=== PATIENT | female | born 1960 | race Caucasian/White ===

== ENCOUNTER → 2022-03-22 | Outpatient (CLI) | payer OTHER ==
[2022-03-22 14:09] LABS: INR 0.9 (<1.2); Partial Thromboplastin Time 30.8 sec (22.0-30.0); Prothrombin Time 9.8 sec (9.0-12.0)
[2022-03-22 18:31] LABS: HCT 40.3 % (37.2-46.3); HGB 13.3 g/dL (12.0-15.0); MCH 31.4 pg (27.0-32.0); MCV 95.3 fL (80.0-97.0); Mean Platelet Volume 9.3 fL (9.5-12.2); NRBC Per 100 WBC 0 /100 WBCS (0.0-0.0); Platelet Count 279 X 10*3/uL (140-440); RBC 4.23 X 10*6/uL (4.10-5.20); WBC 6.91 X 10*3/uL (4.50-10.00)
[2022-03-22 18:45] LABS: African American GFR (CKD) 109.6 (60.0-200.0); Albumin 4.7 g/dL (3.8-4.9); Albumin/Globulin Ratio 2.06 (1.60-3.17); Anion Gap 12.4 mmol/L (10.00-18.00); BUN/Creat Ratio 24.11 Ratio (12.00-20.00); Blood Urea Nitrogen 16.3 mg/dL (9.0-27.0); Calcium 10.1 mg/dL (8.7-10.3); Carbon Dioxide 25.9 mmol/L (20.0-27.5); Globulin 2.3 g/dL (1.6-3.3); Non-African American GFR(CKD) 94.6 (60.0-200.0); Potassium 4.4 mmol/L (3.5-5.5); Total Bilirubin 0.2 mg/dL (0.30-1.20)
== END | disposition home or self-care (01) ==
LOC: LABPAT 13:10
PROVIDERS: ATTEND Orthopaedic Surgery
DX: Z01.812 Encounter for preprocedural laboratory examination (principal); M16.11 Unilateral primary osteoarthritis, right hip
CPT/HCPCS: 36415; 80053; 85027; 85610; 85730; 87070; 93005

== ENCOUNTER → 2022-12-04 | Outpatient (CLI) | payer OTHER ==
[2022-12-04 15:04] LABS: INR 0.9 (<1.2); Prothrombin Time 9.5 sec (9.0-12.0)
[2022-12-04 17:46] LABS: Appearance,Urine Clear (Clear); Bilirubin,Urine Negative (Negative); Blood,Urine Trace (Negative); Color,Urine Yellow (Yellow); Ketones,Urine Negative (Negative); Nitrite,Urine Negative (Negative); PH, Urine 7.5 (5.0-8.0); Specific Gravity,Urine 1.009 (1.001-1.030); Urobilinogen,Urine 0.2 (0.2,1.0)
[2022-12-04 17:52] LABS: Bacteria,Urine None Seen /HPF (None Seen)
[2022-12-04 17:57] LABS: HCT 43.3 % (37.2-46.3); HGB 14.4 g/dL (12.0-15.0); MCH 31.4 pg (27.0-32.0); MCHC 33.3 g/dL (32.0-37.0); MCV 94.3 fL (80.0-97.0); Mean Platelet Volume 9.4 fL (9.5-12.2); NRBC Per 100 WBC 0 /100 WBCS (0.0-0.0); Platelet Count 263 X 10*3/uL (140-440); RBC 4.59 X 10*6/uL (4.10-5.20); RDW 12.7 % (11.5-14.5); WBC 6.22 X 10*3/uL (4.50-10.00)
[2022-12-04 19:01] LABS: ALT 26 U/L (8-44); AST 23 U/L (13-35); African American GFR (CKD) 110.5 (60.0-200.0); Albumin 4.7 g/dL (3.8-4.9); Alkaline Phosphatase 107 U/L (41-126); BUN/Creat Ratio 27.24 Ratio (12.00-20.00); Blood Urea Nitrogen 17.6 mg/dL (9.0-27.0); Calcium 10.3 mg/dL (8.7-10.3); Carbon Dioxide 26.5 mmol/L (20.0-27.5); Chloride 101 mmol/L (96-109); Globulin 2.4 g/dL (1.6-3.3); Glucose 94 mg/dL (70-110); Non-African American GFR(CKD) 95.3 (60.0-200.0); Potassium 4.7 mmol/L (3.5-5.5); Sodium 140 mmol/L (135-145); Total Bilirubin <0.15 mg/dL (0.30-1.20); Total Protein 7.1 g/dL (6.2-8.2)
== END ==
LOC: LABPAT 13:32
PROVIDERS: ATTEND Orthopaedic Surgery
DX: Z01.818 Encounter for other preprocedural examination (principal); M16.12 Unilateral primary osteoarthritis, left hip
CPT/HCPCS: 80053; 81001; 85027; 85610; 85730; 87070; 93005

== ENCOUNTER 2022-12-12 05:35 | Day surgery (SDC) | payer OTHER ==
[2022-12-06 16:02] VITALS: BMI 19.8
[~2022-12-12 05:35] MED LIST: ACETAMINOPHEN TAB 500 MG TAB PO PRN; GABAPENTIN 300 MG CAP PO PRN; MELOXICAM 7.5 MG TAB PO PRN; TRANEXAMIC ACID IN NACL,ISO-OS 1,000 MG in SALINE 1 100ML.BAG IVPB PRN
[2022-12-12] MEDS ORDERED: ONDANSETRON 4 MG/2 ML VIAL ONE (06:17)
[2022-12-12] MEDS ORDERED: DEXAMETHASONE SOD PHOSPHATE 4 MG/ML 1 ML VIAL IVP ONE (06:25)
[2022-12-12] MEDS ORDERED: ONDANSETRON 4 MG/2 ML VIAL IVP ONE (06:25)
[2022-12-12] MEDS ORDERED: MIDAZOLAM 2 MG/2 ML VIAL IVP ONE (06:36)
[2022-12-12] MEDS ORDERED: fentaNYL (PF) 50 MCG/1 ML VIAL IVP ONE (06:36)
[2022-12-12] MEDS ORDERED: GLYCOPYRROLATE 0.2 MG/ML 2 ML VIAL ONE (06:50)
[2022-12-12] MEDS ORDERED: SUCCINYLCHOLINE CHLORIDE 200 MG/10 ML VIAL IV ONE (06:50)
[2022-12-12] MEDS ORDERED: MIDAZOLAM 2 MG/2 ML VIAL ONE (06:50)
[2022-12-12] MEDS ORDERED: NEOSTIGMINE 1 MG/ML 10 ML VIAL ONE (06:50)
[2022-12-12] MEDS ORDERED: HYDROmorphone (PF) 1 MG/ML ONE (06:50)
[2022-12-12] MEDS ORDERED: PHENYLEPHRINE-0.9% NACL SYG 1,000 MCG/10 ML SYRINGE ONE (06:50)
[2022-12-12] MEDS ORDERED: PROPOFOL 10 MG/ML 20 ML VIAL IV ONE (06:50)
[2022-12-12] MEDS ORDERED: TRANEXAMIC ACID IN NACL,ISO-OS 1,000 MG/100 ML BAG ONE (06:50)
[2022-12-12] MEDS ORDERED: fentaNYL (PF) 50 MCG/ML 2 ML AMP ONE (06:50)
[2022-12-12] MEDS ORDERED: CISATRACURIUM 2 MG/ML 5 ML VIAL IV ONE (06:50)
[2022-12-12] MEDS ORDERED: LACTATED RINGERS 1,000 ML IV ONE ×2 (06:53→08:08)
[2022-12-12] MEDS ORDERED: ceFAZolin 1,000 MG in SODIUM CHLORIDE 0.9% 1,000 ML IRRIGATION ONE (06:57)
[2022-12-12] MEDS ORDERED: ROPIVACAINE 5 MG/ML 30 ML VIAL MISCELLANE ONE ×2 (07:25→07:58)
--- NOTE | 2022-12-12 08:05 | P.OP ---
Date of Procedure: 12/12/22 Preoperative Diagnosis: Severe osteoarthritis left hip Postoperative Diagnosis: Severe osteoarthritis left hip Procedure(s) Performed: Left total hip arthroplasty with a direct anterior approach Implants: [employer] Polarstem standard size 1 [employer] R3, 3 hole hemispherical acetabular shell, 48 mm [employer] Reflection 6.5 mm cancellus screw, 20 mm [employer] R3, XLPE 20 acetabular liner [employer] Oxinium femoral head 32 m, +0 All components were press-fit. The articulation is Oxinium on polyethylene. Anesthesia: GETA Surgeon: Rubio Cortez Support Group Manager #1: Bettye Ovalle Estimated Blood Loss (ml): 100 Pathology: other (Femoral head) Condition: stable Disposition: PACU Indications for Procedure: After failure of conservative treatment we discussed the surgical and nonsurgical treatment options at length. Patient wishes to proceed with a total hip arthroplasty with a direct anterior approach. Complications specific to this procedure were discussed at length, including but not limited to infection, leg length discrepancy, dislocation, nerve injury, and fracture. Covid-19 was also discussed at length with the patient, and they are aware of the current policies and procedures. The patient was given the option of delaying surgery, but they elect to proceed knowing these risks. Patient is aware of all these complications and informed consent was obtained Operative Findings: The operative findings are consistent with severe osteoarthritis of the left hip Description of Procedure: The patient was seen and evaluated in the preoperative area and the consent was reviewed. The operative site was marked with a skin marker. The patient verified the procedure and operative site. A ANTONIO block was placed by anesth esia in the preoperative area. The patient was then brought to the operating room and given preoperative antibiotics intravenously. 1 g of Tranexamic acid was also given intravenously. A general anesthetic was administered by the anesthesia department. The patient was then placed on the [place] table with the bony prominences well-padded. The hip area was then prepped with a ChloraPrep solution and draped in the usual sterile fashion. A universal timeout was then performed, which confirmed the patient's name, surgical site, ALLERGIES, and procedure being performed on the consent. Next the incision site was located at 1 cm distal and 4 cm lateral to the anterior superior iliac spine. The skin and subcutaneous tissues were sharply incised. Incision was carefully dissected down to the fascia overlying the tensor fascia margaux muscle. This fascia was then incised in line with the muscle fibers. Care was taken to stay laterally in order to avoid injuring the lateral femoral cutaneous nerve. Next, using blunt finger dissection, the tensor fascia margaux muscle was dissected off its investing fascia. The muscle was then carefully retracted laterally with a cobra retractor over the lateral neck of the femur. Next, the circumflex vessels were identified and cauterized using the Aquamantis device. The anterior hip capsule was then exposed. The capsule was then opened and an inverted T fashion. The retractors were then placed intracapsularly. The retractors were maintained intracapsular throughout the procedure. The proximal femur was then visualized. Fluoroscopic x-rays were then taken in order to evaluate the preoperative leg lengths. A small amount of traction was placed on the leg. The femoral neck was then osteotomized at the appropriate level above the lesser trochanter. A small wedge of bone was then removed from the remaining femoral head. Next, using a corkscrew the femoral head was removed from the acetabulum. On gross visual inspection, the femoral head had complete loss of articular cartilage and multiple periarticular osteophytes. The femoral head was then measured. Attention was then turned to the acetabulum. The acetabulum was exposed and any remaining labrum was excised. Sequential reaming of the acetabulum was performed using fluoroscopic guidance until there was a good bed of bleeding cancellus bone. When the appropriate size was reached, a trial was then placed. The position and fit of the trial was checked with fluoroscopy. The trial was then removed. Then, using fluoroscopic guidance, the final implant was impacted at 20 of anteversion and 40 of abduction, and fully seated in the acetabulum. 1 screw was then placed in the acetabulum. Again fluoroscopy was used to check position of the screw. Next, the liner was then impacted, with a 20 elevated liner located in the anterior superior quadrant. Component locking was confirmed. Attention was then directed to the femur. With the aid of the [place] table, the f emur was externally rotated to approximately 130, extended, and adducted under the opposite leg. A side hook was then placed under the proximal femur, and the side hook elevator was used to elevate the proximal femur while releasing the capsule. Retractors were then placed. A capsular release was performed, as well as a release of the conjoined tendon, which afforded excellent visualization of the proximal femur. Next, a box osteotome was used to lateralize the proximal femur. A hand or machine paster was then used to locate the femoral canal. Sequential broaching was then performed with appropriate size which afforded excellent fixation in the proximal femur. A trial was then placed with appropriate head and neck, and the hip was gently reduced with the aid of the [place] table. Fluoroscopy was then used to check position of the components, as well as to evaluate the leg lengths and offset. The leg lengths and offset were measured as closely as possible to ensure stability of the hip. The hip was then gently dislocated and the trials were then removed. Final implants were then impacted and the hip was again reduced. Final fluoroscopic x-rays confirmed that the components were in anatomic position. The leg lengths and offset were measured and were found to coincide with the trial measurements. The hip was also taken through range of motion, and found to be stable. The hip was then copiously irrigated with antibiotic solution with pulsatile lavage. The hip was then irrigated with Irrisept solution. The soft tissues were then injected with a ropivacaine solution. A second dose of 1 g of Tranexamic acid was also given intravenously. The fascia was then closed with 2-0 strata fix suture. The subcutaneous tissue was closed with 3-0 Vicryl. The subcuticular tissue was closed with 3-0 strata fix suture. The skin was then closed with Exofin skin glue. After the glue and dried, and Optifoam silver impregnated dressing was applied. The patient was then transferred to the recovery room in stable condition. The dental laboratory assistant CHRYSTAL Young was required due to the complexity of surgery, and the need for skilled surgical sales representative for positioning, draping, exposure, retraction, and closure of the wound.
[2022-12-12] MEDS ORDERED: HYDROmorphone 1 MG/ML 1 ML SYRINGE IVP PRN (08:28)
[2022-12-12] MEDS ORDERED: ONDANSETRON 4 MG/2 ML VIAL IVP PRN (08:28)
[2022-12-12] MEDS ORDERED: HYDROmorphone 0.5 MG/0.5 ML SYRINGE IVP PRN ×2 (08:28)
[2022-12-12] MEDS ORDERED: NALOXONE 0.4 MG/ML 1 ML VIAL IV PRN (08:28)
[2022-12-12] MEDS ORDERED: SODIUM CHLORIDE 0.9% 1,000 ML IV SCH (08:30)
[2022-12-12] MEDS ORDERED: HYDROcodone/APAP 7.5-325MG 1 EACH TAB PO PRN ×2 (08:30)
[2022-12-12 08:34] VITALS: TEMP 97.5
[2022-12-12] MEDS ORDERED: HYDROmorphone 0.5 MG/0.5 ML SYRINGE IVP ONE ×2 (08:43→09:08)
--- NOTE | 2022-12-12 09:32 | XR ---
EXAMINATION TYPE: XR Hip Limited LT DATE OF EXAM: 12/12/2022 Comparison: None Clinical History: 62-year-old female Status post hip surgery, assess surgical alignment Findings: Partially visualized lumbar fusion hardware. Degenerative change of the pubic symphysis. Image shows left hip total arthroplasty. Acetabular cup and femoral stem components of the prosthesis are well se ated without periprosthetic fracture. Alignment grossly anatomic. Scattered soft tissue air related t o recent operation. Impression: Uncomplicated postoperative appearance left hip total arthroplasty.
[2022-12-12] MEDS ORDERED: ceFAZolin 10 GM VIAL IVPB ONE (10:34)
--- NOTE | 2022-12-12 11:10 | FL ---
EXAMINATION TYPE: FL guidance operating room, XR Hip Limited LT DATE OF EXAM: 12/12/2022 CLINICAL HISTORY: Left hip pain and osteoarthritis. TECHNIQUE: Fluoroscopy. Intraoperative limited views left hip. COMPARISON: None. FINDINGS: Fluoroscopic guidance was provided during left hip replacement procedure performed by Dr. Cortez. A total of 24 seconds of fluoroscopic time was utilized during the procedure and 4 spot in traoperative images are acquired. Images acquired show eventual placement of metallic hardware from total left hip arthroplasty which a ppears satisfactory in position on frontal projection on intraoperative images obtained. IMPRESSION: As Above.
[2022-12-12 12:04] VITALS: BP 114/70; PULSE 95; RESP 16
--- NOTE | 2022-12-12 13:31 | P.ANPRN ---
Procedure Note - Anesthesia - Nerve Block Performed Left Igor Single Time Out Performed: Yes ([id number]) Date of Procedure: 12/12/22 Procedure Start Time: :35 Procedure Stop Time: 06:43 Location of Patient: PreOp Indication: Acute Post-Operative Pain, Dx/Pain Location, Requested by Surgeon Specifically requested for management of pain by : Rubio Cortez Sedation Type: Sedate with meaningful contact maintained Preparation: Sterile Prep Position: Supine Catheter: None Needle Types: Pajunk Needle Gauge: 21 (100 mm ) Ultrasound used to visualize needle placement: Yes Ultrasound used to observe medication spread: Yes Injectate: 0.5% Ropivacaine (see comment for volume) (20 cc + Normal saline 10cc + 4mg of decadron) Blood Aspirated: No Pain Paresthesia on Injection Noted: No Resistance on Injection: Normal Image Stored and Saved: Yes Events: Uneventful and Well Tolerated
== END 2022-12-12 12:16 | disposition home health service (06) ==
LOC: OR 05:35
PROVIDERS: ATTEND Orthopaedic Surgery
DX: M16.12 Unilateral primary osteoarthritis, left hip (principal); G89.18 Other acute postprocedural pain; I10 Essential (primary) hypertension; Z88.5 Allergy status to narcotic agent; Z98.1 Arthrodesis status; Z82.49 Family history of ischemic heart disease and other diseases of the circulatory system; Z86.59 Personal history of other mental and behavioral disorders; Z79.899 Other long term (current) drug therapy
CPT/HCPCS: 97530; 97161; 64447; 76942; 86900; 86901; 86850; 73501; 27130; C1776; J2250; J0330; J1100; J2710; J0690 ×2; J2405; J3010 ×2; J1170 ×2; J2795; J2370; J2704; 88300

== ENCOUNTER 2023-09-07 18:14 | Inpatient (IN) | payer OTHER ==
[2023-09-07] MEDS ORDERED: NALOXONE 0.4 MG/ML 1 ML VIAL IV PRN (19:22)
--- NOTE | 2023-09-07 19:30 | ED ---
ENT HPI - General Chief complaint: ENT Stated complaint: Nosebleed Time Seen by Provider: 09/07/23 18:31 Source: patient, EMS, RN notes reviewed, old records reviewed Mode of arrival: EMS Limitations: no limitations - History of Present Illness Initial comments: This is a 63-year-old female to the emergency department who is accepted as a transfer for nosebleed. Patient has Rhino Rocket placed both nares with significant dizziness lightheadedness and pain. Patient has severe nasal pain, patient was transferred for ENT to evaluate and see this patient, patient is here in the ER does admit to still having bleeding in her oropharynx. She is spitting up blood. Denies blood thinners MD complaint: epistaxis, other (Patient has persistent nosebleed both nares) -: hour(s) Location: nose Severity: mild Severity scale (1-10): 2 Improves with: none Worsens with: none Associated Symptoms: other (Nosebleed) - Related Data Home Medications Medication Instructions Recorded Confirmed Atorvastatin [Lipitor] 10 mg PO DAILY 09/07/23 09/07/23 Cyanocobalamin [Vitamin B-12] 1,000 mcg PO DAILY 09/07/23 09/07/23 Docusate [Colace] 100 mg PO DAILY 09/07/23 09/07/23 Fish Oil/Dha/Epa [Fish Oil 1,200 1 cap PO DAILY 09/07/23 09/07/23 mg Fish Oil] Magnesium Oxide [Magnesium] 500 mg PO DAILY 09/07/23 09/07/23 Multivit-Min/Iron/Folic/Lutein 1 tab PO DAILY 09/07/23 09/07/23 [Centrum Silver Women Tablet] Previous Rx's Medication Instructions Recorded Acetaminophen Tab [Tylenol] 650 mg PO Q6HR PRN tab 09/12/23 Cefdinir [Omnicef] 300 mg PO Q12HR 10 Days #20 capsule 09/12/23 Pantoprazole Sodium [Protonix] 40 mg PO DAILY 10 Days #10 tab 09/12/23 lisinopriL [Prinivil] 20 mg PO DAILY #30 tablet 09/12/23 Allergies Allergy/AdvReac Type Severity Reaction Status Date / Time codeine Allergy Rash/Hives Verified 09/07/23 19:10 pancuronium [From Pavulon] Allergy Dyspnea Verified 09/07/23 19:10 sulfamethoxazole Allergy Rash/Hives Verified 09/07/23 19:10 [From Bactrim] trimethoprim [From Bactrim] Allergy Rash/Hives Verified 09/07/23 19:10 sodium pentothal Allergy Anaphylaxis Uncoded 09/07/23 19:10 Review of Systems ROS Statement: Those systems with pertinent positive or pertinent negative responses have been documented in the HPI. ROS Other: All systems not noted in ROS Statement are negative. 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 History of Any Multi-Drug Resistant Organisms: None Reported Past Surgical History: Back Surgery, Bowel Resection, Hysterectomy, Joint Replacement, Orthopedic Surgery, Tonsillectomy, Tubal Ligation Additional Past Surgical History / Comment(s): Spianl and cervical fusions, right ganglion cyst removed, bowel surgery for perforated bowel as a child. Past Anesthesia/Blood Transfusion Reactions: Previous Problems w/ Anesthesia Additional Past Anesthesia/Blood Transfusion Reaction / Comment(s): " on the table" when received sodium penthothal yrs ago. Had SOB with Pavulon yrs ago. Has had surgeries since with no problems. Past Psychological History: No Psychological Hx Reported Smoking Status: Former smoker Past Alcohol Use History: Rare Past Drug Use History: None Reported - Past Family History Mother Family Medical History: No Reported History General Exam Limitations: no limitations General appearance: alert, in no apparent distress Head exam: Present: atraumatic, normocephalic, normal inspection Eye exam: Present: normal appearance, PERRL, EOMI. Absent: scleral icterus, conjunctival injection, periorbital swelling ENT exam: Present: normal exam, other (Bilateral nasal Rhino Rockets placed) Neck exam: Present: normal inspection. Absent: tenderness, meningismus, lymphadenopathy Respiratory exam: Present: normal lung sounds bilaterally. Absent: respiratory distress, wheezes, rales, rhonchi, stridor Cardiovascular Exam: Present: regular rate, normal rhythm, normal heart sounds. Absent: systolic murmur, diastolic murmur, rubs, gallop, clicks GI/Abdominal exam: Present: soft, normal bowel sounds. Absent: distended, tenderness, guarding, rebound, rigid Extremities exam: Present: normal inspection, full ROM, normal capillary refill. Absent: tenderness, pedal edema, joint swelling, calf tenderness Back exam: Present: normal inspection Neurological exam: Present: alert, oriented X3, CN II-XII intact Psychiatric exam: Present: normal affect, normal mood Skin exam: Present: warm, dry, intact, normal color. Absent: rash Course Vital Signs 09/07/23 09/07/23 18:24 22:03 Temperature 98.6 F Pulse Rate 97 79 Respiratory 18 16 Rate Blood Pressure 137/78 133/75 O2 Sat by Pulse 93 L 95 Oximetry - Reevaluation(s) Reevaluation #1: 09/07/23 19:27 Medical record is reviewed Reevaluation #2: 09/07/23 19:27 Patient symptoms unchanged Patient still has bleeding Reevaluation #3: 09/07/23 19:28 Patient informed results and questions Reevaluation #4: 09/07/23 19:28 Was pt. sent in by a medical professional or institution (, PA, AIR BRAKE MAN, urgent care, hospital, or senior care...) When possible be specific @ -no Did you speak to anyone other than the patient for history (EMS, parent, family, police, friend...)? What history was obtained from this source @ -no Did you review nursing and triage notes (agree or disagree)? Why? @ -agree Are old charts reviewed (outside hosp., previous admission, EMS record, old EKG, old radiological studies, urgent care reports/EKG's, senior care records)? Report findings @ -yes Differential Diagnosis (chest pain, altered mental status, abdominal pain women, abdominal pain men, vaginal bleeding, weakness, fever, dyspnea, syncope, headache, dizziness, GI bleed, back pain, seizure, CVA, palpatations, mental health, musculoskeletal)? @ -prior EKG interpreted by me (3pts min.). @ -no X-rays interpreted by me (1pt min.). @ -no CT interpreted by me (1pt min.). @ -no U/S interpreted by me (1pt. min.). @ -no What testing was considered but not performed or refused? (CT, X-rays, U/S, labs)? Why? @ -none What meds were considered but not given or refused? Why? @ -none Did you discuss the management of the patient with other professionals (professionals i.e. DrNick, PA, AIR BRAKE MAN, lab, RT, psych nurse, social worker assistant, admiralty lawyer, teacher, operations officer trust department, case technician)? Give summary @ -no Was smoking cessation discussed for >3mins.? @ -no Was critical care preformed (if so, how long)? @ -no Were there social determinants of health that impacted care today? How? (H omelessness, low income, unemployed, alcoholism, drug addiction, transportation, low edu. Level, literacy, decrease access to med. care, half-way, rehab)? @ -none Was there de-escalation of care discussed even if they declined (Discuss DNR or withdrawal of care, Hospice)? DNR status @ -no What co-morbidities impacted this encounter? (DM, HTN, Smoking, COPD, CAD, Cancer, CVA, ARF, Chemo, Hep., AIDS, mental health diagnosis, sleep apnea, morbid obesity)? @ -none Was patient admitted / discharged? Hospital course, mention meds given and route, prescriptions, significant lab abnormalities, going to OR and other pertinent info. @ - 63 female to the emergency department for evaluation of bilateral nosebleed. Patient has still minimal nosebleed into her nasopharynx oropharynx and spitting up blood. Patient be admitted and ENT will see the patient Admitted bilateral Undiagnosed new problem with uncertain prognosis? @ -no Drug Therapy requiring intensive monitoring for toxicity (Heparin, Nitro, Insulin, Cardizem)? @ -no Were any procedures done? @ -no Diagnosis/symptom? @ -bilateral nosebleed Acute, or Chronic, or Acute on Chronic? @ -Acute Uncomplicated (without systemic symptoms) or Complicated (systemic symptoms)? @ -Complicated Side effects of treatment? @ -no Exacerbation, Progression, or Severe Exacerbation? @ -exacerbation Poses a threat to life or bodily function? How? (Chest pain, [place], MA, pneumonia, PE, COPD, DKA, ARF, appy, cholecystitis, CVA, Diverticulitis, Homicidal, Suicidal, threat to staff... and all critical care pts) @ -no - Consultations Consultation #1: Spoke with ENT will see this patient Consultation #2: Spoke with admitting physicians will be to admit this patient Medical Decision Making - Medical Decision Making 63 female to the emergency department for evaluation of bilateral nosebleed. Patient has still minimal nosebleed into her nasopharynx oropharynx and spitting up blood. Patient be admitted and ENT will see the patient - Lab Data Result diagrams: 09/12/23 06:13 09/11/23 06:04 Disposition Clinical Impression: Left-sided nosebleed, Right-sided nosebleed Disposition: ADMITTED IP TO THIS HOSP Condition: Fair Is patient prescribed a controlled substance at d/c from ED?: No Time of Disposition: 19:25
[2023-09-07 20:04] LABS: Basophils % (A) 0 %; Eosinophils % (A) 0 %; HCT 33.9 % (34.0-46.0); HGB 11.7 gm/dL (11.4-16.0); Lymphocytes # (A) 1.3 k/uL (1.0-4.8); Lymphocytes % (A) 19 %; MCH 32.3 pg (25.0-35.0); MCHC 34.5 g/dL (31.0-37.0); MCV 93.5 fL (80.0-100.0); Monocytes # (A) 0.5 k/uL (0-1.0); Monocytes % (A) 7 %; Neutrophils % (A) 72 %; Platelet Count 228 k/uL (150-450); RBC 3.62 m/uL (3.80-5.40); WBC 6.9 k/uL (3.8-10.6)
[2023-09-07 20:16] LABS: INR 0.9 (<1.2); Partial Thromboplastin Time 27.8 sec (22.0-30.0); Prothrombin Time 9.9 sec (10.0-12.5)
[2023-09-07] MEDS: ONDANSETRON 4 MG/2 ML VIAL IVP PRN (20:41)
[2023-09-07] MEDS: HYDROmorphone 0.5 MG/0.5 ML SYRINGE IVP PRN (20:44)
[2023-09-07] MEDS: SODIUM CHLORIDE 0.9% 1,000 ML IV SCH (20:45)
[2023-09-08] MEDS: HYDROmorphone 0.5 MG/0.5 ML SYRINGE IVP PRN ×5 (00:34→20:35)
[2023-09-08] MEDS: ONDANSETRON 4 MG/2 ML VIAL IVP PRN ×3 (05:30→20:35)
[2023-09-08] MEDS: MAGNESIUM OXIDE 400 MG TAB PO SCH (08:39)
[2023-09-08] MEDS: CYANOCOBALAMIN 500 MCG TAB PO SCH (08:39)
[2023-09-08] MEDS: DOCUSATE 100 MG CAP PO SCH (08:40)
[2023-09-08] MEDS: PANTOPRAZOLE 40 MG/10 ML VIAL IV SCH (08:40)
[2023-09-08] MEDS: ATORVASTATIN 10 MG TAB PO SCH (08:40)
[2023-09-08] MEDS ORDERED: lisinopriL 10 MG TAB PO SCH (09:00)
[2023-09-08 09:46] LABS: Blood Urea Nitrogen 21.9 mg/dL (9.0-27.0); Calcium 9.2 mg/dL (8.7-10.3); Carbon Dioxide 25.6 mmol/L (21.6-31.8); Chloride 100 mmol/L (96-109); Glucose 105 mg/dL (70-110); Potassium 4.5 mmol/L (3.5-5.5); Sodium 137 mmol/L (135-145)
[2023-09-08 09:47] LABS: HGB 10.9 d/dL (12.0-15.0); MCH 32.1 pg (27.0-32.0); MCHC 34.1 d/dL (32.0-37.0); MCV 94.1 FL (80.0-97.0); Mean Platelet Volume 9.3 FL (9.5-12.2); NRBC Per 100 WBC 0 X 10*3/uL (0.00-0.01); Platelet Count 219 X 10*3/uL (140-440); RDW 13.2 % (11.5-14.5); WBC 7.94 X 10*3/uL (4.50-10.00)
--- NOTE | 2023-09-08 09:54 | P.HPIM ---
History of Present Illness 63-year-old female was sent in from outside hospital because of nosebleeds and patient has a Rhino Rocket in place. Patient does take baby aspirin at home. Patient denied any coronary artery disease history or strokes in the past p atient does smoke. Patient was evaluated by ENT and they are recommending to is a Rhino Rocket on with slow deflation for 4 days and empiric antibiotics during this time to prevent sinusitis. REVIEW OF SYSTEMS: CONSTITUTIONAL: No fever, no malaise, no fatigue. HEENT: No recent visual problems or hearing problems. Denied any sore throat. CARDIOVASCULAR: No chest pain, orthopnea, PND, no palpitations, no syncope. PULMONARY: No shortness of breath, no cough, no hemoptysis. GASTROINTESTINAL: No diarrhea, no nausea, no vomiting, no abdominal pain. NEUROLOGICAL: No headaches, no weakness, no numbness. HEMATOLOGICAL: Denies any bleeding or petechiae. GENITOURINARY: Denies any burning micturition, frequency, or urgency. MUSCULOSKELETAL/RHEUMATOLOGICAL: Denies any joint pain, swelling, or any muscle pain. ENDOCRINE: Denies any polyuria or polydipsia. The rest of the 14-point review of systems is negative. PHYSICAL EXAMINATION: GENERAL: The patient is alert and oriented x3, not in any acute distress. Well developed, well nourished. HEENT: Pupils are round and equally reacting to light. EOMI. No scleral icterus. No conjunctival pallor. Normocephalic, atraumatic. No pharyngeal erythema. No thyromegaly. Patient has a Rhino Rocket's bilaterally CARDIOVASCULAR: S1 and S2 present. No murmurs, rubs, or gallops. PULMONARY: Chest is clear to auscultation, no wheezing or crackles. ABDOMEN: Soft, nontender, nondistended, normoactive bowel sounds. No palpable organomegaly. MUSCULOSKELETAL: No joint swelling or deformity. EXTREMITIES: No cyanosis, clubbing, or pedal edema. NEUROLOGICAL: Gross neurological examination did not reveal any focal deficits. SKIN: No rashes. Assessment and plan -epistaxis holding off on aspirin. Control the blood pressure. Patient was started on Ceftin. So deflation of Rhino Rocket. ENT is recommending so deflation of the Rhino Rocket 4 days -Hypertension uncontrolled elevated blood pressure patient's recent overdose will be increased to 20 mg monitor the blood pressure -Nicotine use: Counseling was provided -Gastroesophageal reflux disease DVT prophylaxis: Early ambulation Past Medical History Past Medical History: Hypertension, Musculoskeletal Disorder, Osteoarthritis (OA), Respiratory Disorder Additional Past Medical History / Comment(s): Seasonal allergies, Sarcoidosis - has lung nodules, Degenerative Disc Disease, Scoliosis, Spinal Stenosis, hx perforated bowel as a child. History of Any Multi-Drug Resistant Organisms: None Reported Past Surgical History: Back Surgery, Bowel Resection, Hysterectomy, Joint Replacement, Orthopedic Surgery, Tonsillectomy, Tubal Ligation Additional Past Surgical History / Comment(s): Spinal and cervical fusions, right ganglion cyst removed, bowel surgery for perforated bowel as a child. Colonoscopy/EGD, ulcers in stomach, lump under right axilla to be monitored and looked at in 6 months Past Anesthesia/Blood Transfusion Reactions: Previous Problems w/ Anesthesia Additional Past Anesthesia/Blood Transfusion Reaction / Comment(s): " on the table" when received sodium penthothal yrs ago. Had SOB with Pavulon yrs ago. Has had surgeries since with no problems. Past Psychological History: No Psychological Hx Reported Smoking Status: Former smoker Past Alcohol Use History: Rare Additional Past Alcohol Use History / Comment(s): Quit smoking 2 yrs ago, smoked for 30 yrs, 1ppd. Past Drug Use History: None Reported - Past Family History Mother Family Medical History: No Reported History Medications and Allergies Home Medications Medication Instructions Recorded Confirmed Type Aspirin [Adult Low Dose Aspirin EC] 81 mg PO DAILY 12/06/22 09/07/23 History Atorvastatin [Lipitor] 10 mg PO DAILY 09/07/23 09/07/23 History Cyanocobalamin [Vitamin B-12] 1,000 mcg PO DAILY 09/07/23 09/07/23 History Docusate [Colace] 100 mg PO DAILY 09/07/23 09/07/23 History Fish Oil/Dha/Epa [Fish Oil 1,200 1 cap PO DAILY 09/07/23 09/07/23 History mg Fish Oil] Magnesium Oxide [Magnesium] 500 mg PO DAILY 09/07/23 09/07/23 History Multivit-Min/Iron/Folic/Lutein 1 tab PO DAILY 09/07/23 09/07/23 History [Centrum Silver Women Tablet] lisinopriL [Zestril] 10 mg PO DAILY 09/07/23 09/07/23 History Allergies Allergy/AdvReac Type Severity Reaction Status Date / Time codeine Allergy Rash/Hives Verified 09/07/23 19:10 pancuronium [From Pavulon] Allergy Dyspnea Verified 09/07/23 19:10 sulfamethoxazole Allergy Rash/Hives Verified 09/07/23 19:10 [From Bactrim] trimethoprim [From Bactrim] Allergy Rash/Hives Verified 09/07/23 19:10 sodium pentothal Allergy Anaphylaxis Uncoded 09/07/23 19:10 Physical Exam Vitals: Vital Signs Temp Pulse Pulse Resp BP BP Pulse Ox 09/08/23 07:05 98.5 F 92 19 163/77 93 L 09/08/23 02:00 97.7 F 98 17 155/83 91 L 09/08/23 01:29 95 09/07/23 23:55 97.9 F 95 17 161/80 93 L 09/07/23 22:03 79 16 133/75 95 09/07/23 18:24 98.6 F 97 18 137/78 93 L Intake and Output 09/07/23 09/08/23 09/08/23 22:59 06:59 14:59 Other: Voiding Method Toilet # Voids 2 Weight 49.442 kg 49.442 kg Results CBC & Chem 7: 09/08/23 04:11 09/08/23 04:11 Labs: Abnormal Lab Results - Last 24 Hours (Table) 09/07/23 09/07/23 09/08/23 Range/Units 19:41 19:41 04:11 RBC 3.62 L 3.40 L (3.80-5.40) m/uL Hgb 10.9 L (12.0-15.0) d/dL Hct 33.9 L 32.0 L (34.0-46.0) % MCH 32.1 H (27.0-32.0) pg MPV 9.3 L (9.5-12.2) FL PT 9.9 L (10.0-12.5) sec BUN/Creatinine Ratio (12.00-20.00) Ratio 09/08/23 Range/Units 04:11 RBC (3.80-5.40) m/uL Hgb (12.0-15.0) d/dL Hct (34.0-46.0) % MCH (27.0-32.0) pg MPV (9.5-12.2) FL PT (10.0-12.5) sec BUN/Creatinine Ratio 36.50 H (12.00-20.00) Ratio Thrombosis Risk Factor Assmnt - Choose All That Apply Any of the Below Risk Factors Present?: No Other Risk Factors: Yes Each Risk Factor Represents 2 Points: Age 61-74 years Other congenital or acquired thrombophilia - If yes, enter type in comment: No Thrombosis Risk Factor Assessment Total Risk Factor Score: 2 Thrombosis Risk Factor Assessment Level: Low Risk
[2023-09-08] MEDS: CEFDINIR 300 MG CAP PO SCH ×2 (11:01→20:31)
[2023-09-08] MEDS: SODIUM CHLORIDE 0.9% 1,000 ML IV SCH (11:51)
[2023-09-08] MEDS ORDERED: amLODIPine 5 MG TAB PO STA (18:36)
[2023-09-09] MEDS: HYDROmorphone 0.5 MG/0.5 ML SYRINGE IVP PRN ×2 (02:35→13:35)
[2023-09-09] MEDS: ONDANSETRON 4 MG/2 ML VIAL IVP PRN ×2 (02:35→13:35)
[2023-09-09] MEDS: DOCUSATE 100 MG CAP PO SCH (09:56)
[2023-09-09] MEDS: lisinopriL 20 MG TAB PO SCH (09:56)
[2023-09-09] MEDS: MAGNESIUM OXIDE 400 MG TAB PO SCH (09:56)
[2023-09-09] MEDS: ATORVASTATIN 10 MG TAB PO SCH (09:56)
[2023-09-09] MEDS: PANTOPRAZOLE 40 MG/10 ML VIAL IV SCH (09:56)
[2023-09-09] MEDS: CYANOCOBALAMIN 500 MCG TAB PO SCH (09:56)
[2023-09-09] MEDS: CEFDINIR 300 MG CAP PO SCH ×2 (09:57→20:32)
[2023-09-09] MEDS: OXYMETAZOLINE 0.05% NASL SPRAY 1 SPRAY BOTTLE NASAL SCH ×2 (13:58→20:33)
--- NOTE | 2023-09-09 21:07 | P.PN ---
Subjective Progress Note Date: 09/09/23 63-year-old female was sent in from outside hospital because of nosebleeds and patient has a Rhino Rocket in place. Patient does take baby aspirin at home. Patient denied any coronary artery disease history or strokes in the past patient does smoke. Patient was evaluated by ENT and they are recommending to is a Rhino Rocket on with slow deflation for 4 days and empiric antibiotics during this time to prevent sinusitis. 09/09/2023 Patient is evaluated today sitting up at the side of the bed. Diet will be advanced from clear liquid. Rhino rockets remain in place bilaterally. ENT following up today to slowly deflate. Patient is having a post nasal drip which is making her nauseas. Hemoglobin 10.9 today. Hemodynamically she is stable. Review of Systems Constitutional: Denied any fatigue denied any fever. Cardio vascular: denied any chest pain, palpitations Gastrointestinal: denied any nausea, vomiting, diarrhea Pulmonary: Reports shortness of breath cough Neurologic denied any new focal deficits All inpatient medications were reviewed and appropriate changes in these medications as dictated in the interval history and assessment and plan. PHYSICAL EXAMINATION: GENERAL: The patient is alert and oriented x3, not in any acute distress. Well developed, well nourished. HEENT: Pupils are round and equally reacting to light. EOMI. No scleral icterus. No conjunctival pallor. Normocephalic, atraumatic. No pharyngeal erythema. No thyromegaly. Patient has a Rhino Rocket's bilaterally CARDIOVASCULAR: S1 and S2 present. No murmurs, rubs, or gallops. PULMONARY: Chest is clear to auscultation, no wheezing or crackles. ABDOMEN: Soft, nontender, nondistended, normoactive bowel sounds. No palpable organomegaly. MUSCULOSKELETAL: No joint swelling or deformity. EXTREMITIES: No cyanosis, clubbing, or pedal edema. NEUROLOGICAL: Gross neurological examination did not reveal any focal deficits. SKIN: No rashes. Assessment and plan -epistaxis holding off on aspirin. Blood pressure has improved with increase in lisinopril. ENT recommending to slowly deflate the rockets over 4 days total. -Hypertension uncontrolled elevated blood pressure; lisinopril increased to 20 mg daily and amlodipine has been added. -Nicotine use: Counseling was provided -Gastroesophageal reflux disease DVT prophylaxis: Early ambulation The impression and plan of care has been dictated by Alyssa Mays Nurse Practitioner as directed. Dr. Adam MD I have performed a history and physical examination and medical decision making of this patient, discussed the same with the dictator, and agree with the dictators assessment and plan as written, documented as a scribe. Based on total visit time, I have performed more than 50% of this visit. Objective Objective - Vital Signs Vital signs: Vital Signs Temp 98.1 F 09/09/23 20:03 Pulse 97 09/09/23 20:03 Resp 20 09/09/23 20:03 BP 124/71 09/09/23 20:03 Pulse Ox 94 L 09/09/23 20:03 FiO2 40 09/08/23 10:18 Intake & Output 09/09/23 09/09/23 09/10/23 06:59 18:59 06:59 Intake Total 180 Balance 180 Intake: Oral 180 Other: Voiding Method Toilet Toilet # Voids 2 3 - Labs CBC & Chem 7: 09/08/23 04:11 09/08/23 04:11 Assessment and Plan Time with Patient: Less than 30
--- NOTE | 2023-09-10 03:20 | PN ---
PROGRESS NOTE DATE OF SERVICE: 09/09/2023 SUBJECTIVE: Vital signs stable. The patient has not had any obvious or melissa nasal bleeding since her admission. As expected, she is uncomfortable with the inflated balloons in her nose. OBJECTIVE: HEENT: Balloons are intact and dry. Therefore, I decided to deflate the balloon in the left naris and subsequently this was removed without incident. There was no bleeding after removal of this nasal balloon. Inspection did not reveal any evidence of obvious bleeding areas intranasally. I sprayed 2 or 3 puffs of Afrin nasal spray/decongestant intranasally. I had the patient sniff back and she did spit out and partially swallow a small blood clot. Examination of oropharynx did not reveal any active bleeding after this procedure. The remainder of the head neck exam and physical exam is unchanged since last visit. ASSESSMENT: Right anterior posterior epistaxis. PLAN: I will see this patient tomorrow on 09/10/2023 and at that time make a decision with respect to the remaining nasal balloon. I have advised the nursing staff that the patient can have a regular diet at this time. I have also requested that they spray 2- 3 puffs of Afrin nasal spray in the left naris 3 times daily. MMODL / IJN: [id number] /
--- NOTE | 2023-09-10 03:32 | CONS ---
CONSULTATION HISTORY OF PRESENT ILLNESS: The patient is a pleasant 63-year-old female who was originally seen at [facility] for a nosebleed. The patient states that several days before going to [facility], she was having experience with a nosebleed. Eventually it started and she was not able to get it stopped at home. She presented to the emergency room in [facility], which does not have ENT coverage, they packed first the right side of her nose then the left. Her bleeding she states started on the right side. While in the emergency room, there was bleeding from the left side and this is the reason for the packing of the left side. Unfortunately, the patient continues to have intermittent bleeding and therefore the packing on the right side and the left side were removed and she was repacked. At that point, it was decided to transfer the patient to [facility] Emergency Room where there was ENT coverage. I was consulted by the emergency room physician and based upon the fact that he relates they advised him that the patient should be admitted. She had bilateral packing. She has to be admitted to the hospital because she needs to have supplemental O2 because of the bilateral nasal packing. Without supplemental O2, the patient can possibly desaturate overnight. The patient states that she has never had a nosebleed in the past. She takes a baby aspirin on a daily basis. She has seasonal allergies and has been taking Claritin-D. I advised her that she should not take Claritin-D. Claritin-D contains Sudafed which is supposed to be a decongestant. However, it does not work as a decongestant, but it does have a side effect of elevating patient's blood pressure and also causing insomnia. Therefore, I have advised avoid any sinus medications with decongestants such as Sudafed present. I recommended that she try [id number] Zyrtec which does not have a decongestant present. Since her allergies are year round, she can take the medication on a year-round basis. If she continues to have any issues with respect to any nasal stuffiness, then she can also use a nasal spray such as Flonase. The patient smokes less than a half pack of cigarettes per day and advised her to stop for obvious health reasons. She is resting at this time, but obviously uncomfortable with the nasal packing present. The nasal balloons are inflated with water. PAST MEDICAL HISTORY: Reveals that she has allergies to codeine. CURRENT MEDICATIONS: Include: 1. Lipitor. 2. Baby aspirin daily. 3. Lisinopril. 4. Claritin-D. REVIEW OF SYSTEMS: CARDIOVASCULAR: Positive for hypertension. METABOLIC/ENDOCRINE: Positive for hypercholesterolemia. The remainder of review of systems is essentially unremarkable. PHYSICAL EXAMINATION: GENERAL: This patient is a very pleasant 63-year-old female, who was alert and cooperative. HEENT: Patient is normocephalic. Tympanic membranes are normal. Middle ear spaces are free of any fluid or infection. Pupils equal, round, reactive to light and accommodation. Extraocular movements within normal limits. Intranasal examination reveals the septum is slightly deviated from the midline. Both nasal chambers are occupied by the Rhinostat nasal balloons which are inflated. The evaluation of the septum is from external evaluation. Examination of oropharynx reveals that there is an old dark blood/mucus draining down the posterior pharynx with no evidence of any fresh or bright red bleeding. Palpation of the neck, cranial nerves II through XII, remainder of the head and neck exam is unremarkable. CHEST AND CARDIOVASCULAR: Both lung carmichael are clear to percussion and auscultation. The patient is in regular sinus rhythm. S1, S2 are present without any murmurs, S3s, or S4s. Peripheral pulses are bilaterally symmetrical. ABDOMEN: There is no evidence of any masses, megaly, or tenderness. The abdomen is soft. The remainder of physical exam is essentially unremarkable. IMPRESSION: Right anterior/posterior epistaxis. PLAN: For now, I am going to leave both balloons intact. I will see the patient tomorrow on 09/09/2023 and at that time, determine whether or not to deflate one of the nasal balloons. I will follow this patient on a daily basis while she is in the hospital. I want to take this opportunity to thank you for allowing me to assist in the care of your patient. If I could be of any further assistance, please feel free to contact my office. YECENIAL / IJN: [id number] / MTDD
[2023-09-10] MEDS: ACETAMINOPHEN TAB 325 MG TAB PO PRN ×2 (05:38→20:01)
[2023-09-10] MEDS: OXYMETAZOLINE 0.05% NASL SPRAY 1 SPRAY BOTTLE NASAL SCH ×3 (08:44→19:59)
[2023-09-10] MEDS: lisinopriL 20 MG TAB PO SCH (08:44)
[2023-09-10] MEDS: CEFDINIR 300 MG CAP PO SCH ×2 (08:44→19:58)
[2023-09-10] MEDS: CYANOCOBALAMIN 500 MCG TAB PO SCH (08:44)
[2023-09-10] MEDS: DOCUSATE 100 MG CAP PO SCH (08:44)
[2023-09-10] MEDS: ATORVASTATIN 10 MG TAB PO SCH (08:44)
[2023-09-10] MEDS: MAGNESIUM OXIDE 400 MG TAB PO SCH (08:44)
[2023-09-10] MEDS: PANTOPRAZOLE 40 MG/10 ML VIAL IV SCH (08:45)
[2023-09-10 08:56] LABS: Basophils # (A) 0.04 X 10*3/uL (0.00-0.10); Basophils % (A) 0.6 %; Eosinophils # (A) 0 X 10*3/uL (0.04-0.35); Eosinophils % (A) 0 %; HCT 31.4 % (37.2-46.3); HGB 10.6 d/dL (12.0-15.0); Lymphocytes # (A) 1.46 X 10*3/uL (0.90-5.00); Lymphocytes % (A) 21.8 %; MCH 32.1 pg (27.0-32.0); MCHC 33.8 d/dL (32.0-37.0); MCV 95.2 FL (80.0-97.0); Mean Platelet Volume 9.2 FL (9.5-12.2); Monocytes # (A) 0.73 X 10*3/uL (0.20-1.00); Monocytes % (A) 10.9 %; NRBC Per 100 WBC 0 X 10*3/uL (0.00-0.01); Neutrophils # (A) 4.45 X 10*3/uL (1.80-7.70); Neutrophils % (A) 66.4 %; Platelet Count 219 X 10*3/uL (140-440); RDW 13.1 % (11.5-14.5)
--- NOTE | 2023-09-10 22:29 | PN ---
PROGRESS NOTE DATE OF SERVICE: 09/10/2023 SUBJECTIVE: This 63-year-old woman was admitted with epistaxis, had right anterior posterior epistaxis. ENT is following the patient closely. Nasal pack is applied, aspirin is on hold. PHYSICAL EXAMINATION: VITAL SIGNS: Pulse 83, blood pressure 199/60, respirations 16. CHEST: Clear to auscultation. CARDIOVASCULAR: S1, S2. ABDOMEN: Soft. NERVOUS SYSTEM: No focal deficits. HEENT: Nasal packing present. LABORATORY DATA: Hemoglobin 10.6. ASSESSMENT: 1. Epistaxis, right anterior posterior epistaxis, status post packing. 2. Hypertension. 3. History of nicotine dependence. 4. GERD. RECOMMENDATIONS: Recommended to continue current medications, continue symptomatic treatment. Otherwise, recommended to repeat labs. Closely follow with ENT. Further recommendations to follow. MMODL / IJN: [id number] /
[2023-09-11 08:49] LABS: Basophils # (A) 0.06 X 10*3/uL (0.00-0.10); Basophils % (A) 0.9 %; Eosinophils # (A) 0.01 X 10*3/uL (0.04-0.35); Eosinophils % (A) 0.2 %; HCT 28.7 % (37.2-46.3); HGB 9.8 d/dL (12.0-15.0); Lymphocytes # (A) 1.51 X 10*3/uL (0.90-5.00); Lymphocytes % (A) 23.2 %; MCHC 34.1 d/dL (32.0-37.0); MCV 93.8 FL (80.0-97.0); Mean Platelet Volume 9.5 FL (9.5-12.2); Monocytes # (A) 0.76 X 10*3/uL (0.20-1.00); Monocytes % (A) 11.7 %; NRBC Per 100 WBC 0 X 10*3/uL (0.00-0.01); Neutrophils # (A) 4.13 X 10*3/uL (1.80-7.70); Neutrophils % (A) 63.5 %; Platelet Count 217 X 10*3/uL (140-440); RBC 3.06 X 10*6/uL (4.10-5.20); RDW 13.1 % (11.5-14.5)
[2023-09-11] MEDS: CYANOCOBALAMIN 500 MCG TAB PO SCH (09:20)
[2023-09-11] MEDS: CEFDINIR 300 MG CAP PO SCH ×2 (09:20→20:44)
[2023-09-11] MEDS: lisinopriL 20 MG TAB PO SCH (09:20)
[2023-09-11] MEDS: MAGNESIUM OXIDE 400 MG TAB PO SCH (09:20)
[2023-09-11] MEDS: PANTOPRAZOLE 40 MG/10 ML VIAL IV SCH (09:20)
[2023-09-11] MEDS: DOCUSATE 100 MG CAP PO SCH (09:20)
[2023-09-11] MEDS: ATORVASTATIN 10 MG TAB PO SCH (09:20)
[2023-09-11] MEDS: OXYMETAZOLINE 0.05% NASL SPRAY 1 SPRAY BOTTLE NASAL SCH ×3 (09:21→20:44)
[2023-09-11] MEDS: ACETAMINOPHEN TAB 325 MG TAB PO PRN (10:03)
[2023-09-11 11:12] LABS: Blood Urea Nitrogen 30.8 mg/dL (9.0-27.0); Calcium 9.2 mg/dL (8.7-10.3); Carbon Dioxide 24.8 mmol/L (21.6-31.8); Chloride 101 mmol/L (96-109); Glucose 109 mg/dL (70-110); Potassium 5.1 mmol/L (3.5-5.5); Sodium 136 mmol/L (135-145)
--- NOTE | 2023-09-11 15:59 | P.PN ---
Subjective Progress Note Date: 09/11/23 63-year-old female was sent in from outside hospital because of nosebleeds and patient has a Rhino Rocket in place. Patient does take baby aspirin at home. Patient denied any coronary artery disease history or strokes in the past patient does smoke. Patient was evaluated by ENT and they are recommending to is a Rhino Rocket on with slow deflation for 4 days and empiric antibiotics during this time to prevent sinusitis. 09/09/2023 Patient is evaluated today sitting up at the side of the bed. Diet will be advanced from clear liquid. Rhino rockets remain in place bilaterally. ENT following up today to slowly deflate. Patient is having a post nasal drip which is making her nauseas. Hemoglobin 10.9 today. Hemodynamically she is stable. 09/11/2023 Patient is seen and evaluated in follow-up today with ENT following. Rhino Rocket from the left nare has been removed with no active bleeding noted from that site and is continued on aspirin 3 times daily. Patient to be evaluated by ENT today with possible removal of the right nares rocket. Hemoglobin is stable at 9.8 today and patient reporting some dark stools. Patient has been ingesting some blood from the drainage in the posterior drainage and will monitor and follow up with repeat CBC tomorrow. Other labs reviewed and within normal limits. Patient is also continued on antibiotics per ENT recommendations and will continue and await ENT reevaluation. Patient is currently afebrile denies chest pain or shortness of breath. Patient is tolerating diet with no reported nausea or vomiting. Review of Systems Constitutional: Denied any fatigue denied any fever. Cardio vascular: denied any chest pain, palpitations Gastrointestinal: denied any nausea, vomiting, diarrhea, reports dark stools Pulmonary: Reports shortness of breath cough Neurologic denied any new focal deficits All inpatient medications were reviewed and appropriate changes in these medications as dictated in the interval history and assessment and plan. PHYSICAL EXAMINATION: GENERAL: The patient is alert and oriented x3, Well developed, thin built HEENT: Pupils are round and equally reacting to light. EOMI. No scleral icterus. No conjunctival pallor. Normocephalic, atraumatic. No pharyngeal erythema. No thyromegaly. Patient has a Rhino Rocket noted still in the right nare CARDIOVASCULAR: S1 and S2 muffled PULMONARY: Chest is clear to auscultation, no wheezing or crackles. ABDOMEN: Soft, nontender, nondistended, normoactive bowel sounds. No palpable organomegaly. MUSCULOSKELETAL: No joint swelling or deformity. EXTREMITIES: No cyanosis, clubbing, or pedal edema. NEUROLOGICAL: Gross neurological examination did not reveal any focal deficits. SKIN: No rashes. Assessment: -epistaxis, right anterior posterior epistaxis , status post packing with Rhino Rocket to bilateral nares -Hypertension, uncontrolled elevated blood pressure, improved -Dark stools most likely secondary to ingestion of epistaxis nasal drainage -GERD -Nicotine use: Counseling was provided -Gastroesophageal reflux disease -DVT prophylaxis: Early ambulation -Full code Plan: We'll continue on current medication regimen including Afrin nasal spray 3 times a day to bilateral nare and has had the left rocket removed with ENT following and awaiting follow-up reevaluation with ENT Continue with antibiotics per ENT recommendations Patient noted to have some dark stools and has been ingesting blood from the postnasal drip and denies any abdominal pain. Hemoglobin is stable at 9.8 and will repeat labs in the a.m. Possible removal of the right rocket later today or tomorrow Will discuss further with ENT and possible discharge planning in the next 24 hours The impression and plan of care has been dictated by Gloria Abdullahi, Nurse Practitioner as directed. Dr. Doug MD I have performed a history and examination and MDM of this patient, discussed the same with the dictator, and agree with the dictator's assessment and plan as written ,documented as a scribe. Based on total visit time, I have performed more than 50% of the visit. Objective - Vital Signs Vital signs: Vital Signs Temp 98.9 F 09/11/23 13:58 Pulse 103 H 09/11/23 13:58 Resp 16 09/11/23 13:58 BP 103/54 09/11/23 13:58 Pulse Ox 97 09/11/23 13:58 FiO2 40 09/08/23 10:18 Intake & Output 09/10/23 09/11/23 09/11/23 18:59 06:59 18:59 Intake Total 118 118 Output Total 0 Balance 118 0 118 Intake: Oral 118 118 Output: Emesis 0 Other: Voiding Method Toilet # Voids 2 1 6 # Bowel Movements 2 - Labs CBC & Chem 7: 09/11/23 06:04 09/11/23 06:04 Labs: Abnormal Lab Results - Last 24 Hours (Table) 09/11/23 09/11/23 Range/Units 06:04 06:04 RBC 3.06 L (4.10-5.20) X 10*6/uL Hgb 9.8 L (12.0-15.0) d/dL Hct 28.7 L (37.2-46.3) % Eosinophils # 0.01 L (0.04-0.35) X 10*3/uL BUN 30.8 H (9.0-27.0) mg/dL BUN/Creatinine Ratio 38.50 H (12.00-20.00) Ratio
--- NOTE | 2023-09-11 18:04 | PN ---
PROGRESS NOTE DATE OF SERVICE: 09/10/2023 SUBJECTIVE: Vital signs stable. The patient has had no further bleeding from the left naris since the removal of the Rhinostat balloon nasal packing yesterday. OBJECTIVE: HEENT: The patient is normocephalic. Intranasal examination, there was no evidence of any active bleeding in the left naris. Examination of oropharynx reveals no blood draining down the posterior pharyngeal wall. I partially deflated the Rhinostat balloon on the right side, that is to say, there was approximately 5 mL of water in the balloon and I removed approximately 2 to 2-1/2 mL of this water. This greatly relieved the pressure that the patient was experiencing in her head. There was no active bleeding after decreasing the pressure. Further inspection of the posterior pharynx did not reveal any bleeding down the posterior pharyngeal wall. ASSESSMENT: Right anterior posterior epistaxis. PLAN: I will see the patient tomorrow, on 09/11/2023 and at that time I will re- evaluate her. MMODL / IJN: [id number] /
--- NOTE | 2023-09-11 18:11 | PN ---
PROGRESS NOTE DATE OF SERVICE: 09/11/2023 SUBJECTIVE: Vital signs stable. The patient has not had any further active bleeding from either naris. OBJECTIVE: HEENT: The patient is normocephalic. Examination of the left naris reveals no evidence of any active bleeding. The right naris has no active bleeding. Therefore, the remaining 2 to 2-1/2 mL of water was evacuated from the right Rhinostat nasal balloon. The balloon was subsequently removed without incident. There was no evidence of any active bleeding either intranasally or upon examination of the posterior pharynx. The right naris was sprayed with approximately 2 puffs of Afrin nasal spray. Remainder of exam is unchanged since last visit. ASSESSMENT: Right anterior posterior epistaxis. PLAN: I will re-evaluate the patient tomorrow. If she does not have any further bleeding which we now in tomorrow, I will see her at approximately 1 p.m. and at that time examine her. If everything is okay, then she will be okay to be discharged home. If she is discharged home, I have advised the patient that I would like to see her in my office approximately a week to 10 days after discharge. I will dictate the appropriate ENT discharge instructions and I will leave a prescription for omnicef capsules 300mg p.o. B.I.D. for 10 days . YECENIAL / EMIN: [id number] / MTDD
[2023-09-12 07:44] VITALS: BP 103/68; PULSE 72; RESP 12; TEMP 98
[2023-09-12] MEDS: CYANOCOBALAMIN 500 MCG TAB PO SCH (08:09)
[2023-09-12] MEDS: PANTOPRAZOLE 40 MG/10 ML VIAL IV SCH (08:09)
[2023-09-12] MEDS: MAGNESIUM OXIDE 400 MG TAB PO SCH (08:09)
[2023-09-12] MEDS: DOCUSATE 100 MG CAP PO SCH (08:09)
[2023-09-12] MEDS: lisinopriL 20 MG TAB PO SCH (08:09)
[2023-09-12] MEDS: ATORVASTATIN 10 MG TAB PO SCH (08:09)
[2023-09-12] MEDS: CEFDINIR 300 MG CAP PO SCH (08:09)
[2023-09-12] MEDS: OXYMETAZOLINE 0.05% NASL SPRAY 1 SPRAY BOTTLE NASAL SCH (08:16)
[2023-09-12 10:34] LABS: Basophils # (A) 0.04 X 10*3/uL (0.00-0.10); Basophils % (A) 0.7 %; Eosinophils # (A) 0 X 10*3/uL (0.04-0.35); Eosinophils % (A) 0 %; HCT 28.6 % (37.2-46.3); HGB 9.4 d/dL (12.0-15.0); Immature Grans, Automated 0 %; Lymphocytes # (A) 1.65 X 10*3/uL (0.90-5.00); Lymphocytes % (A) 30.3 %; MCH 31.6 pg (27.0-32.0); MCHC 32.9 d/dL (32.0-37.0); MCV 96.3 FL (80.0-97.0); Mean Platelet Volume 9.8 FL (9.5-12.2); Monocytes # (A) 0.69 X 10*3/uL (0.20-1.00); Monocytes % (A) 12.7 %; NRBC Per 100 WBC 0 X 10*3/uL (0.00-0.01); Neutrophils # (A) 3.07 X 10*3/uL (1.80-7.70); Neutrophils % (A) 56.3 %; Platelet Count 240 X 10*3/uL (140-440); RBC 2.97 X 10*6/uL (4.10-5.20); RDW 13.2 % (11.5-14.5); WBC 5.45 X 10*3/uL (4.50-10.00)
--- NOTE | 2023-09-14 14:23 | P.DS ---
Providers Date of admission: 09/07/23 19:24 Expected date of discharge: 09/12/23 Attending physician: Estrada Camacho Consults: 09/07/23 19:22 Consult Physician Routine Consulting Provider: Gen Nash Consult Reason/Comments: BLnossebleed Do you want consulting provider notified?: Yes Primary care physician: Renetta Lewis MD Hospital Course: Final diagnosis -epistaxis, right anterior posterior epistaxis , status post packing with Rhino Rocket to bilateral nares, improved no further bleeding with both rockets removed -Hypertension, uncontrolled elevated blood pressure, improved -Dark stools most likely secondary to ingestion of epistaxis nasal drainage, resolved -GERD -Nicotine use: Counseling was provided -Gastroesophageal reflux disease -DVT prophylaxis: Early ambulation -Full code Discharge disposition Patient is being discharged in a stable condition with guarded prognosis to home . Patient will follow-up with Dr. Lewis in the outpatient setting upon discharge. Patient is to continue with Omnicef and close outpatient follow-up with ENT as scheduled. Continue holding aspirin for now. Total time taken is greater than 35 minutes. Hospital course This is a 63-year-old female who was recently admitted with nosebleeds bilaterally being monitored closely requiring Rhino Rocket still bilateral nares with ENT following. Patient was also continued on Afrin nasal spray and supplemental oxygen as needed. Pressure slowly decreased from Rhino Rocket's with no further bleeding noted and continued on antibiotics and will continue with close outpatient follow-up with Dr. Nash. Patient has been cleared for discharge today. Please refer to ENT no for further HPI. Follow-up CBC prescription provided. Currently no reports of chest pain, shortness of breath, or palpitations. Patient is afebrile. No reports of nausea or vomiting and patient is tolerating diet. Patient will be discharged home today. Guarded prognosis. Patient instructed to hold aspirin for now and close outpatient follow-up. Physical exam: Gen: This is a 63-year-old female who is awake, alert and oriented 3, thin built, well-developed HEENT: Head is atraumatic, normocephalic. Pupils equal, round. Sclerae is anicteric. Nares patent with no bleeding noted on room air NECK: Supple. No JVD. No lymphadenopathy. No thyromegaly. LUNGS: Clear to auscultation. No wheezes or rhonchi. No intercostal retractions. HEART: Regular rate and rhythm. No murmur. ABDOMEN: Soft. Bowel sounds are present. No masses. No tenderness. EXTREMITIES: No pedal edema. No calf tenderness. NEUROLOGICAL: Patient is awake, alert and oriented x3. Cranial nerves 2 through 12 are grossly intact. Please refer to medication reconciliation sheet for a list of medications. The impression and plan of care has been dictated by Gloria Abdullahi, Nurse Practitioner as directed. Dr. Doug MD I have performed a history and examination and MDM of this patient, discussed the same with the dictator, and agree with the dictator's assessment and plan as written ,documented as a scribe. Based on total visit time, I have performed more than 50% of the visit. Patient Condition at Discharge: Fair Plan - Discharge Summary Discharge Rx Participant: Yes New Discharge Prescriptions: New lisinopriL [Prinivil] 20 mg PO DAILY #30 tablet Pantoprazole Sodium [Protonix] 40 mg PO DAILY 10 Days #10 tab Acetaminophen Tab [Tylenol] 650 mg PO Q6HR PRN tab PRN Reason: Mild Pain Or Fever > 100.5 Cefdinir [Omnicef] 300 mg PO Q12HR 10 Days #20 capsule Continue Multivit-Min/Iron/Folic/Lutein [Centrum Silver Women Tablet] 1 tab PO DAILY Cyanocobalamin [Vitamin B-12] 1,000 mcg PO DAILY Atorvastatin [Lipitor] 10 mg PO DAILY Magnesium Oxide [Magnesium] 500 mg PO DAILY Fish Oil/Dha/Epa [Fish Oil 1,200 mg Fish Oil] 1 cap PO DAILY Docusate [Colace] 100 mg PO DAILY Discontinued Aspirin [Adult Low Dose Aspirin EC] 81 mg PO DAILY lisinopriL [Zestril] 10 mg PO DAILY Discharge Medication List Atorvastatin [Lipitor] 10 mg PO DAILY 09/07/23 [History] Cyanocobalamin [Vitamin B-12] 1,000 mcg PO DAILY 09/07/23 [History] Docusate [Colace] 100 mg PO DAILY 09/07/23 [History] Fish Oil/Dha/Epa [Fish Oil 1,200 mg Fish Oil] 1 cap PO DAILY 09/07/23 [History] Magnesium Oxide [Magnesium] 500 mg PO DAILY 09/07/23 [History] Multivit-Min/Iron/Folic/Lutein [Centrum Silver Women Tablet] 1 tab PO DAILY 09/07/23 [History] Acetaminophen Tab [Tylenol] 650 mg PO Q6HR PRN tab 09/12/23 [Rx] Cefdinir [Omnicef] 300 mg PO Q12HR 10 Days #20 capsule 09/12/23 [Rx] Pantoprazole Sodium [Protonix] 40 mg PO DAILY 10 Days #10 tab 09/12/23 [Rx] lisinopriL [Prinivil] 20 mg PO DAILY #30 tablet 09/12/23 [Rx] Follow up Appointment(s)/Referral(s): Gen Nash MD [STAFF PHYSICIAN] - 1 Week (7-10 day follow up) Renetta Lewis MD [Primary Care Provider] - 1-2 days Ambulatory/Diagnostic Orders: Complete Blood Count w/diff [LAB.AMB] Time Frame: 3 Days, Location: None Selected Patient Instructions/Handouts: Nosebleed (ED) Activity/Diet/Wound Care/Special Instructions: 1. Special ENT discharge instructions: Please carefully review/read all discharge instructions. It should be okay for you to return to work with limited activities. Please avoid any heavy lifting or straining. If it is possible for you to remain at home a large part of the time, that would be best. The more rest to get the quicker your nose will heal. You should avoid blowing your nose until further notice. If you feel there is mucus/snot in your nose then you may sniff it back and spit it out. Also, if you have to sneeze you should allow the force of the sneeze to come out of your mouth and not sure nose. These last 2 requests regarding blowing your nose or sneezing with your mouth open should be followed until we see you in my office in approximately 7- 10 days. If should not be necessary for you to run a humidifier in your home because humidity at this time of year is more than adequate, because it is above 50% both indoors and outdoors. Do not use any nasal sprays whatsoever other than the nasal spray that you will be prescribed(Afrin). You will be prescribed Afrin nasal spray and you should use 2 puffs in each nostril 3 times a day until your follow-up visit with Dr. Nash's office. Three times a day means in the morning after your breakfast, after dinner, and before your go to bed. This will help prevent any nosebleeds in the immediate future. I would request that you avoid taking aspirin until further notice. It is okay for you to take Tylenol, Motrin, ibuprofen, Aleve, etc. for any pain that you may experience. 4. You will be given a prescription for a antibiotic capsules, Omnicef 300 mg, which you should begin taking on the evening after you arrive home from the hospital and continued taking twice daily with or without food until it is completely gone. 5. It is okay for you to shower, shampoo your hair, and take baths as usual. If any bleeding should occur while you're home, you should pinch your nose for the full 5 minutes. You can even spray aspirin on a piece of cotton in place this in which ever nostril is bleeding and apply pressure for 5 minutes. Measures don't stop the bleeding, then you should immediately head out to [facility] emergency room since [facility] does not have consistent ENT coverage. 6. Finally,,,, please quit smoking!!!!!!! Discharge Disposition: HOME SELF-CARE
== END 2023-09-12 15:48 | disposition home or self-care (01) | DRG 151 ==
LOC: EC 18:14 → 6NMEDSUR 19:23 → OBSVTOIN 19:24 → 6NMEDSUR 20:44
PROVIDERS: ADMIT Hospitalist; ATTEND Hospitalist
PROC: 2Y41X5Z Packing of Nasal Region using Packing Material (ICD-10-PCS; principal; 2023-09-07)
DX: R04.0 Epistaxis (principal); D86.0 Sarcoidosis of lung; I10 Essential (primary) hypertension; E78.00 Pure hypercholesterolemia, unspecified; K21.9 Gastro-esophageal reflux disease without esophagitis; R09.82 Postnasal drip; J30.2 Other seasonal allergic rhinitis; M41.9 Scoliosis, unspecified; M48.00 Spinal stenosis, site unspecified; M19.90 Unspecified osteoarthritis, unspecified site; F17.210 Nicotine dependence, cigarettes, uncomplicated; Z71.6 Tobacco abuse counseling; Z79.82 Long term (current) use of aspirin; Z79.899 Other long term (current) drug therapy; Z98.1 Arthrodesis status; Z96.60 Presence of unspecified orthopedic joint implant; Z88.5 Allergy status to narcotic agent; Z88.2 Allergy status to sulfonamides; Z88.8 Allergy status to other drugs, medicaments and biological substances
CPT/HCPCS: 80048; 85025; 85027; 85610; 85730; 96374; 96375; 99285